=== PATIENT | female | born 1955 | race Caucasian/White ===

== ENCOUNTER → 2023-07-02 11:01 | Outpatient (REF) | payer MEDICARE, OTHER, SELFPAY | LOC: RCS 11:01 | PROVIDERS: ATTENDING PHYSICIAN Nurse Practitioner Adult Health | DX: E78.2 Mixed hyperlipidemia (principal); I10 Essential (primary) hypertension | CPT/HCPCS: 93306 ==

== ENCOUNTER → 2024-01-03 08:05 | Outpatient (REF) | payer MEDICARE, OTHER, SELFPAY | LOC: DHCBC/DCA 08:05 | PROVIDERS: ATTENDING PHYSICIAN Internal Medicine Cardiovascular Disease; FAMILY PHYSICIAN Nurse Practitioner Adult Health | DX: I42.9 Cardiomyopathy, unspecified (principal); R94.31 Abnormal electrocardiogram [ECG] [EKG] | CPT/HCPCS: 78452; 93017; A9500 ==

== ENCOUNTER → 2024-02-21 08:22 | Outpatient (REF) | payer MEDICARE, OTHER, SELFPAY | LOC: PAVMRI 08:22 | PROVIDERS: ATTENDING PHYSICIAN Nurse Practitioner Gerontology; FAMILY PHYSICIAN Nurse Practitioner Adult Health | DX: I42.8 Other cardiomyopathies (principal) | CPT/HCPCS: 75561; 75565; A9585 ==

== ENCOUNTER → 2024-08-22 13:01 | Outpatient (REF) | payer MEDICARE, OTHER, SELFPAY | LOC: HWWDC 13:01 | PROVIDERS: ATTENDING PHYSICIAN Obstetrics & Gynecology; FAMILY PHYSICIAN Nurse Practitioner Adult Health; REFERRING PHYSICIAN Internal Medicine Rheumatology | DX: Z12.31 Encounter for screening mammogram for malignant neoplasm of breast (principal); Z78.0 Asymptomatic menopausal state | CPT/HCPCS: 77063; 77067; 77080 ==

== ENCOUNTER → 2024-09-07 12:49 | Outpatient (REF) | payer MEDICARE, OTHER, SELFPAY | LOC: RCS 12:49 | PROVIDERS: ATTENDING PHYSICIAN Internal Medicine Cardiovascular Disease; FAMILY PHYSICIAN Nurse Practitioner Adult Health | DX: I42.0 Dilated cardiomyopathy (principal) | CPT/HCPCS: 93306 ==

== ENCOUNTER 2024-11-07 20:42 | Emergency (ER) | payer MEDICARE, OTHER, SELFPAY ==
[2024-11-07 20:44] VITALS: BP 185/94
[2024-11-07 21:00] VITALS: BP 183/84
[2024-11-07 21:02] VITALS: BMI 26.8
[2024-11-07 21:20] LABS: Hematocrit 44.1 % (37.0-47.0); Hemoglobin 15.1 g/dL (12.0-16.0); Mean Corp Hgb Conc. 34.2 g/dL (33.0-37.0); Mean Corpuscular Volume 90.4 fL (81.0-99.0); Nucleated Red Blood Cells % 0 %; Platelet Count 304 10^3/uL (130-400); Red Cell Dist. Width 12.7 % (11.5-14.5)
[2024-11-07 21:36] LABS: ALT (SGPT) 41 U/L (0-35); AST (SGOT) 32 U/L (14-36); Albumin 4.5 g/dl (3.5-5.0); Alkaline Phosphatase 61 U/L (38-126); Blood Urea Nitrogen 20 mg/dl (7-17); Calcium 9.5 mg/dl (8.4-10.2); Carbon Dioxide 26 mmol/L (22-30); Chloride 105 mmol/L (98-107); Estimated Creatinine Clearance 82 ml/min; Glucose 107 mg/dl (70-99); Potassium 4.0 mmol/L (3.5-5.1); Sodium 137 mmol/L (135-145); Total Protein 7.1 g/dl (6.3-8.2); eGFR > 60.00
[2024-11-07 22:00] VITALS: BP 133/73
[2024-11-07] MEDS: NSS 1000 IV (22:21)
[2024-11-07] MEDS: MORPHINE SULFATE 4 MG IV (22:21)
[2024-11-07] MEDS: ZOFRAN 4 MG IV (22:21)
[2024-11-07 23:00] VITALS: BP 158/83
--- NOTE | 2024-11-08 00:27 | ED.GENMED ---
Addendum entered and electronically signed by Param Lentz PA-C 11/10/24 07:47:
Given monurol x 1, final C&S pending
Original Note:
History of Present Illness
General
Chief Complaint: Abdominal Symptoms
Time Seen by Provider: 11/07/24 21:09
History of Present Illness
History of Present Illness:
Note:
CHIEF COMPLAINT(S)
Abdominal pain and spasms.
HISTORY OF PRESENT ILLNESS
The patient is a 68-year-old female presenting with abdominal pain that began around 3:00 PM today. The pain initially started across the upper abdomen and by 6:00 PM had spread to the lower abdomen with associated spasms. The patient reports chills
but denies any fevers. She also mentions mild constipation but no nausea, vomiting, diarrhea, or chest pain. The pain improves slightly when sitting but was exacerbated with movement, such as driving over to the medical facility. She denies any
similar previous episodes of this type of pain and states she has never been diagnosed with any condition causing such symptoms before. The patient consumed a salad with chicken and Pepto-Bismol before the pain intensified. She has no history of
smoking and denies any recent issues with urination today.
PAST SURGICAL HISTORY
The patient has a history of an appendectomy. In 2013, she underwent pelvic prolapse surgery, including procedures for prolapsed uterus and bladder.
SOCIAL HISTORY
The patient denies any history of smoking.
PHYSICAL EXAM
General: Alert, no acute distress.
Skin: Warm, dry.
Head: Normocephalic, atraumatic.
Neck: Supple, trachea midline.
Eye, Ears, Nose, Mouth, and Throat: Oral mucosa moist.
Cardiovascular: Normal peripheral perfusion, No edema.
Respiratory: Respirations are non-labored.
Gastrointestinal: Abdomen nondistended, reports tenderness to the lower abdomen on palpation, particularly upon pressure release.
Back: Normal range of motion, Normal alignment.
Musculoskeletal: Normal ROM, normal strength.
Neurological: Alert and oriented to person, place, time, and situation, No focal neurological deficit observed.
Psychiatric: Cooperative, appropriate mood & affect.
PLAN
A diagnostic evaluation was planned to include a urinalysis. The patient was advised to give a urine sample and will be provided with fluids in the meantime to assist with this. The potential need for pain management was acknowledged and will be
addressed as necessary.
DIFFERENTIAL DIAGNOSIS
The Differential Diagnosis includes, in no particular order and is not limited to:
1. Diverticulitis
2. Kidney stone
3. Gallbladder pathology (cholecystitis or cholelithiasis)
4. Enteritis
5. Peptic ulcer disease
6. Pancreatitis
7. Irritable bowel syndrome
8. Intestinal obstruction
9. Urinary tract infection
10. Hernia
Disposition:
SUMMARY OF ENCOUNTER
The patient is a 68-year-old female who presented to the emergency department with abdominal discomfort and suprapubic pain. A urinalysis indicated a urinary tract infection (UTI), and a CT scan was consistent with enteritis. The patient was treated
with a dose of Bentyl (dicyclomine) and reported feeling better following treatment.
DISPOSITION
The patient is to be discharged home.
PLAN
The patient to continue with home management for the UTI and enteritis. A prescription for Bentyl (dicyclomine) will be provided for abdominal spasms.
INDEPENDENT REVIEW OF LABS AND INTERPRETATION OF TESTS
My independent review of urinalysis indicates the presence of a urinary tract infection.
My independent interpretation of the CT scan shows findings consistent with enteritis.
MEDICATION RECONCILIATION
The patient received a dose of Bentyl (dicyclomine) during the visit and will be prescribed Bentyl for home use.
MEDICAL DECISION MAKING
-Complexity of Data Reviewed:
Considered the following differential diagnoses: diverticulitis, kidney stone, gallbladder pathology (cholecystitis or cholelithiasis), gastroenteritis, peptic ulcer disease, pancreatitis, irritable bowel syndrome, intestinal obstruction, urinary
tract infection, hernia.
-Data:
Category 1
Independently reviewed urinalysis and CT scan findings.
Category 3
Prescription medication prescribed for follow-up care.
-Risk:
Consideration of Admission/Observation: Escalation of care including admission/observation was considered given the complexity and risk of the patients presenting complaint, exam findings, and/or their underlying comorbidities. However, ultimately I
feel the patient is safe for outpatient management with close follow up. Reasoning: Work-up is reassuring, does not reveal any acute life/organ threatening processes, the patients symptoms are well controlled upon reevaluation, reexamination is
reassuring, vitals are stable, the patient is agreeable with discharge, reliable for follow-up.
DIAGNOSIS
Urinary Tract Infection (ICD-10: N39.0)
Enteritis (ICD-10: K52.9)
Past History
Past History
ED Past Medical History: Other (diverticulosis)
ED Past Surgical History: Gynecological and Other (recent bladder suspension.)
Social History
Tobacco: Non-smoker
Alcohol: Occasional
Personal:
Living: with family
Family History
Family History: Other (Colon cancer)
Phy Exam
Physical Exam
Physical Exam:
Physical Exam
Vital signs and allergy list reviewed and agreed with.
GENERAL: Alert , in minimal to moderate apparent distress
EYE: pupils equal, EOMI, anicteric
NECK: Supple, no significant adenopathy. No masses. Trachea midline
ENT: Oropharynx is clear, mmm.
CARDIAC: Regular rate and rhythm . No M/R/G
LUNGS: Clear breath sounds bilaterally, no acute respiratory distress, no wheezes/rales/rhonchi
ABDOMEN: Soft, mild suprapubic focal tenderness, no r/g, no cvat. Normal BSx4q
NEUROLOGICAL: Alert and oriented, no focal neuro deficits
SKIN: Warm and dry, skin intact.
MUSCULOSKELETAL: No edema, well perfused. Moves all 4 extremities
PSYCH: Normal and appropriate interaction.
Course
Orders/Labs/Results
Orders:
Orders
11/07/24 21:13
CMP [Comprehensive Metabolic Panel] Urgent
Complete Blood Count/With Diff Urgent
11/07/24 22:09
0.9% Sodium Chloride 1000 ml [Nss] 1,000 ml IV BOLUS
Morphine Sulfate 4 mg IV NOW STA
Ondansetron Injectable [Zofran] 4 mg IV NOW STA
11/07/24 23:24
CT Abd/pelvis W Iv Cont Urgent
Comment:
Reason For Exam: diffuse and Lower abd pain
11/08/24 00:59
Dicyclomine [Bentyl] 20 mg PO NOW STA
11/08/24 01:31
Urinalysis Reflex To Culture Urgent
Date Specimen was Collected: 11/08/24
Time Specimen was Collected: 01:22
Urine Microscopic Reflex Cult Urgent
Urine Culture Urgent
YOLANDA Source: U
Specimen Description:
Date Specimen was Collected: 11/08/24
Time Specimen was Collected: 01:22
11/08/24 02:07
Fosfomycin [Monurol] 3 gm PO ONCE ONE
Abnormal Lab Results
11/07/24 11/08/24
21:13 01:31
WBC 12.7 H 10^3/uL
(4.8-10.8)
Abs Immat Gran (auto) 0.1 H 10^3/uL
(0-0.05)
Absolute Neuts (auto) 9.1 H 10^3/uL
(1.4-6.5)
Absolute Monos (auto) 0.8 H 10^3/uL
(0.1-0.6)
Lymphocytes % 20.1 L %
(20.5-51.1)
BUN 20 H mg/dl
(7-17)
Glucose 107 H mg/dl
(70-99)
ALT 41 H U/L
(0-35)
Urine Ketones 2+ A
(Negative)
Ur Occult Blood Reflex 3+ A
(Negative)
Leukocyte Esterase Rfl 1+ A
(Negative)
Urine RBC 7-10 A /HPF
(0-2)
Urine Bacteria (Reflex) Many A
(Negative)
Urine Glucose 4+ A
(Negative)
11/07/24 21:13
11/07/24 21:13
Vital Signs
Initial and Last Documented VS:
Initial Vital Signs
Temp Pulse Resp BP Pulse Ox
98.0 F 72 20 185/94 98
11/07/24 20:44 11/07/24 20:44 11/07/24 20:44 11/07/24 20:44 11/07/24 20:44
Last Documented Vital Signs
Temp Pulse Resp BP Pulse Ox
98.0 F 64 18 141/68 97
11/07/24 20:44 11/08/24 02:15 11/08/24 02:30 11/08/24 02:00 11/08/24 02:30
*Pulse Oximetry
SaO2: 94
Oxygen Mode of Delivery: Room air
Patient hypoxic: no
*Critical Care Note
Total Time (30-74mins, 75-104mins- exclusive of procedures): Not Applicable
Update Note
Update Note:
NAME: JEANNETTE KEATING
DATE OF EXAM: 11/07/2024
Patient No: [id number]
Physician: KENYETTA^Lisette
Date of : 1955
Past Medical History (entered by Technologist):
Reason For Exam (entered by Technologist):
Other Notes (entered by Technologist): Patient arrives with reports of generalized abdominal pain starting earlier this evening.
no prior
Additional Information (per [facility] Radiologist):
CT abdomen and pelvis with IV contrast
IMPRESSION:
Minimally distended fluid-filled small bowel loops in the left lower abdomen, with moderate surrounding fat stranding and mesenteric edema, reflecting nonspecific enteritis. Liquid stool throughout the proximal colon, correlate for possibly
anticipate diarrhea state.
No bowel obstruction, abscess or free air.
Left-sided colonic diverticulosis.
Mildly distended bladder.
Diffuse atheromatous disease. Mildly enlarged heart.
Bibasilar atelectasis.
Degenerative changes of the spine.
The results were faxed/finalized only at 12:16 AM ET. If you would like to discuss this case directly, please call [phone] (extension [phone]). If you can't reach me at this number, do not leave a voicemail. Please call [phone] ext [phone] and
ask for the next available Radiologist.
Rios Vidal MD
This report has been electronically signed and verified by the Radiologist whose name is printed above.
ED Attending Note
-
Portions of this chart may have been created with voice recognition software.� Occasional wrong word or��sound alike� substitutions may have occurred due to the inherent limitations of voice recognition software.
Discharge Plan
Departure
Patient Disposition: Home (Routine Discharge)
Date of Disposition: 11/08/24
Time of Disposition: 02:42
Patient with high blood pressure during this ER visit?: Yes
Condition: Good
Discharge Problem:
Abdominal pain, Urinary tract infection
Instructions: [place] Diet, Urinary tract infection in adults - ED (DC), Abdominal Pain, BLOOD PRESSURE
Prescriptions:
New
dicyclomine 10 mg capsule
10 mg PO TID PRN (Reason: spasm) Qty: 10 0RF
No Action
ranitidine HCl [Acid Luggage Liner (ranitidine)] 150 MG tablet
150 mg PO DAILY
lisinopril 5 MG tablet
5 mg PO DAILY
diphenhydramine HCl 25 MG strip
2 tab PO HS
Patient Comments:
Started Tuesday for bee sting on left hand w/ swelling (11/27/13)
Prednisone
3 tablets PO DAILY
Patient Comments:
Pt on a taper that started on Tuesday and took 4 a day for 3 days, now on 3 a day for 3 days (12/02/13).
Referrals:
Daisy Shaffer CRNP [Family Provider, Internal Medicine]
Activity Restrictions/Additional Instructions:
Your prescriptions were sent electronically to the pharmacy that you specified.
Thank You for choosing [facility].
It was a pleasure meeting you and taking part in your care. We hope for your continued healing and wellness.
Please read discharge instructions in their entirety. However, they are for general education and may not describe your exact diagnosis at discharge. Information on your ER visit and medical conditions were discussed with you along with appropriate
follow up information...
If indicated, please take your medications as instructed and indicated on discharge paperwork.
Please schedule a follow up appointment as directed. Call to schedule an appointment
Please return to the emergency department with ANY change in, persisting, or worsening of symptoms. If any of your symptoms do not improve, or persist, or become more severe within 6-12 hours, please return to the emergency department for further
care.
Please return to the emergency department if you develop a headache, neck pain/stiffness, fever greater than 100.4F, chest pain, shortness of breath, persistent nausea, vomiting, slurred speech, difficulty walking, numbness/tingling, weakness, signs
of infection or any other symptoms that are worrisome to you.
If you have any questions or concerns please do not hesitate to call the Hospital at or E-mail me directly at [email or web address]
Interventions
Interventions:
*Risk Screen - Suicide Last Done: 11/07/24 21:05
*General Assessment Last Done: 11/07/24 20:44
*Neglect/Abuse Screening Last Done: 11/07/24 21:02
*ED- Fall Risk Assessment Last Done: 11/07/24 21:02
*ED COVID-19 Vaccine History Last Done: 11/07/24 21:02
[facility] Assessment Last Done: 11/07/24 21:02
Discharge Date and Time
Print Language: DANISH
[2024-11-08] MEDS: BENTYL 20 MG PO (01:27)
[2024-11-08 01:33] VITALS: BP 131/82
[2024-11-08 01:43] LABS: Urine Character Slightly Cloudy (Clear)
[2024-11-08 02:00] VITALS: BP 141/68
[2024-11-08] MEDS: MONUROL 3 GM PO (02:29)
== END 2024-11-08 03:15 | disposition home or self-care (01) ==
LOC: EMR 20:42
PROVIDERS: Nurse Practitioner; EMERGENCY PHYSICIAN Student in an Organized Health Care Education/Training Program; FAMILY PHYSICIAN Nurse Practitioner Adult Health
DX: N39.0 Urinary tract infection, site not specified (principal); K52.9 Noninfective gastroenteritis and colitis, unspecified; R03.0 Elevated blood-pressure reading, without diagnosis of hypertension; K57.30 Diverticulosis of large intestine without perforation or abscess without bleeding; I70.90 Unspecified atherosclerosis; Z80.0 Family history of malignant neoplasm of digestive organs
CPT/HCPCS: 99284; 96374; 96375; 74177; 80053; 81003; 81015; 85025; 87077; 87086; Q9967

== ENCOUNTER 2025-01-29 06:36 | Day surgery (SDC) | payer MEDICARE, OTHER, SELFPAY | END 2025-01-29 11:38 | disposition home or self-care (01) | LOC: GI 06:36 | PROVIDERS: ATTENDING PHYSICIAN Internal Medicine | DX: Z12.11 Encounter for screening for malignant neoplasm of colon (principal); K57.30 Diverticulosis of large intestine without perforation or abscess without bleeding; K64.8 Other hemorrhoids; K55.20 Angiodysplasia of colon without hemorrhage; D12.0 Benign neoplasm of cecum; D12.2 Benign neoplasm of ascending colon; D12.3 Benign neoplasm of transverse colon; D12.4 Benign neoplasm of descending colon; Z86.0100 Personal history of colon polyps, unspecified; Z80.0 Family history of malignant neoplasm of digestive organs | CPT/HCPCS: 45385; 45380; 88305 ==

== ENCOUNTER → 2025-01-31 14:12 | Outpatient (REF) | payer MEDICARE, OTHER, SELFPAY | LOC: PAVMRI 14:12 | PROVIDERS: ATTENDING PHYSICIAN Ophthalmology; FAMILY PHYSICIAN Nurse Practitioner Adult Health | DX: G90.2 Horner's syndrome (principal); R22.1 Localized swelling, mass and lump, neck | CPT/HCPCS: 70543; A9575 ==

== ENCOUNTER → 2025-02-15 14:20 | Outpatient (REF) | payer MEDICARE, OTHER, SELFPAY | LOC: RAD 14:20 | PROVIDERS: ATTENDING PHYSICIAN Ophthalmology; FAMILY PHYSICIAN Nurse Practitioner Adult Health | DX: J98.4 Other disorders of lung (principal) | CPT/HCPCS: 71260; Q9967 ==